=== PATIENT | female | born 2000 | race Caucasian/White ===

== ENCOUNTER 2019-06-22 17:45 | Emergency (ER) | payer OTHER ==
[~2019-06-22] VITALS: Ht 167.6 cm; Wt 72.6 kg
[2019-06-22 20:39] VITALS: BP 119/73
== END 2019-06-22 20:30 | disposition home or self-care (01) ==
LOC: M.ERS 17:45
DX: M79.662 Pain in left lower leg (principal); F17.210 Nicotine dependence, cigarettes, uncomplicated; Z88.0 Allergy status to penicillin; Z88.1 Allergy status to other antibiotic agents; Z88.6 Allergy status to analgesic agent